=== PATIENT | female | born 1950 | race Caucasian/White ===

== ENCOUNTER 2018-07-19 02:49 | Inpatient (IN) | payer MEDICARE ==
[~2018-07-19] VITALS: Ht 162.5 cm; Wt 66.2 kg
--- NOTE | ~2018-07-19 | EKG ---
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
[2018-07-19 02:53] VITALS: BP 129/62
[2018-07-19 03:20] LABS: BASO % 0.4 % (0.0-1.0); EOS # 0.1 10*3/uL (0.0-0.4); EOS % 1.3 % (1.0-4.0); HEMOGLOBIN 13.8 g/dl (12.0-16.0); LYMPH # 2.6 10*3/uL (1.3-4.4); LYMPH % 32.6 % (27.0-41.0); MEAN CELL VOLUME 91.5 fl (81.0-99.0); MEAN CORPUSCULAR HGB 32.4 pg (27.0-31.0); MEAN CORPUSCULAR HGB CONC 35.4 g/dl (33.0-37.0); MEAN PLATELET VOLUME 10.3 fl (9.6-12.3); MONO # 0.7 10*3/uL (0.1-1.0); MONO % 8.4 % (3.0-9.0); NEUT # 4.6 10*3/uL (2.3-7.9); PLATELET COUNT AUTOMATED 256 10*3/uL (130-400); RED BLOOD COUNT 4.26 10*6/uL (4.10-5.10); RED CELL DISTRI WIDTH 12.6 % (0-14.5)
[2018-07-19 03:38] LABS: ALBUMIN 3.7 gm/dl (3.1-4.5); ALKALINE PHOSPHATASE 65 U/L (45-117); BUN 17 mg/dl (7-24); CHLORIDE 108 mmol/L (98-107); CREATININE 1.13 mg/dL (0.55-1.02); POTASSIUM 3.3 mmol/L (3.5-5.1); SGOT/AST 20 IU/L (3-35); SGPT/ALT 26 U/L (12-78); SODIUM 144 mmol/L (136-145); TROPONIN I < 0.015 ng/ml (<0.045)
[2018-07-19 04:30] VITALS: BP 129/65
--- NOTE | 2018-07-19 04:30 | NUR ---
Time: 429 A 67 year old FEMALE admitted to under services of DAVID WANG DO. Pt. arrived via bed from ER. Chief complaint: SYNCOPAL EPISODE. ASSESSMENT OBTAINED FROM RADIOLOGY SCHEDULER. PT IS A+O. FAMILY IS AT THE BEDSIDE. ORIENTED TO ROOM. HEALTHY LIFESTYLES GUIDELINE REVIEWED. BELONGINGS ACCOUNTED FOR. THE PATIENT HAS NO COMPLAINTS AT THIS TIME. BENOIT BUTTS
[2018-07-19] MEDS ORDERED: TENORMIN25 M1 PO (04:52)
[2018-07-19] MEDS ORDERED: PLAVIX75 M1 PO (04:53)
[2018-07-19] MEDS ORDERED: ASPIRIN ADULT L81 M1 PO (04:53)
[2018-07-19] MEDS ORDERED: OMEPRAZOLE40 MG PO (04:53)
[2018-07-19] MEDS ORDERED: PREMARIN0.3 M1 PO (04:54)
--- NOTE | 2018-07-19 05:50 | NUR ---
DR. DURBIN NOTIFIED PT MED-REC IS UNABLE TO BE COMPLETELY UPDATED BECAUSE SHE STATES SHE FORGETS THE DOSAGE OF TWO OF HER MEDICATIONS. WILL PASS ON TO AM SHIFT TO CALL PHARMACY TO VERIFY DOSAGE, OTHERWISE IT IS COMPLETE.
[2018-07-19 06:38] LABS: BUN 17 mg/dl (7-24); CHLORIDE 110 mmol/L (98-107); CHOLESTEROL 234 mg/dL (<200); POTASSIUM 3.3 mmol/L (3.5-5.1); SODIUM 144 mmol/L (136-145)
[2018-07-19 06:49] LABS: CREATININE 1.01 mg/dL (0.55-1.02); FREE T4 1.09 ng/dl (0.76-1.46); HDL CHOLESTEROL 45 mg/dl (40-60); LDL CHOLESTEROL 115 mg/dL (9-159); TRIGLYCERIDES 370 mg/dl (<150); VLDL CHOLESTEROL 74 mg/dL (6-40)
[2018-07-19] MEDS ORDERED: COZAAR50 M1 PO (07:28)
[2018-07-19] MEDS ORDERED: SINGULAIR10 M1 PO (07:28)
[2018-07-19] MEDS ORDERED: HYDROCHLOROTH12.5 M3 PO (07:29)
[2018-07-19 07:59] LABS: VITAMIN D, 25-HYDROXY 41.2 ng/mL (30-100)
[2018-07-19 08:00] VITALS: BP 130/80
--- NOTE | 2018-07-19 09:00 | NUR ---
Senior [employer] Developer in to talk to patient. Patient states lives at home with sister. There are no steps in the home. 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 JARRED IBRAHIM
--- NOTE | 2018-07-19 10:34 | NUR ---
Medicated with zofran per prn order for nausea. Pt states she became nauseated after eating breakfast. geological technician in room to do echo.
--- NOTE | 2018-07-19 11:15 | NUR ---
States that medication for nausea was effective.
[2018-07-19 12:00] VITALS: BP 123/51
--- NOTE | 2018-07-19 13:11 | NUR ---
Tylenol given per prn order for headache.
--- NOTE | 2018-07-19 14:30 | NUR ---
States that tylenol effective.
[2018-07-19] MEDS ORDERED: LOSARTAN-HCTZ1 EACH PO (15:49)
[2018-07-19 16:00] VITALS: BP 111/52
--- NOTE | 2018-07-19 16:45 | NUR ---
Dr. Duarte here and reading echo.
--- NOTE | 2018-07-19 17:05 | NUR ---
Discharge instructions reviewed with patient/family. Patient receptive and verbalizes understanding. Follow-up care arranged. Written instructions given to patient/family. Pt declined wheelchair left in care of family with belongings. IV removed. OLI ADAME
== END 2018-07-19 17:05 | disposition home or self-care (01) | DRG 640 ==
LOC: ED 02:49 → EDHOLD 04:00 → 4E 04:00
PROVIDERS: Internal Medicine; Student in an Organized Health Care Education/Training Program; ADMIT Emergency Medicine
DX: E86.0 Dehydration (principal); N17.0 Acute kidney failure with tubular necrosis; E44.0 Moderate protein-calorie malnutrition; I25.10 Atherosclerotic heart disease of native coronary artery without angina pectoris; I25.118 Atherosclerotic heart disease of native coronary artery with other forms of angina pectoris; E87.6 Hypokalemia; E87.8 Other disorders of electrolyte and fluid balance, not elsewhere classified; R73.9 Hyperglycemia, unspecified; E83.51 Hypocalcemia; E78.00 Pure hypercholesterolemia, unspecified; Z86.74 Personal history of sudden cardiac arrest; Z95.1 Presence of aortocoronary bypass graft; Z88.0 Allergy status to penicillin; Z88.5 Allergy status to narcotic agent; Z88.8 Allergy status to other drugs, medicaments and biological substances; Z79.82 Long term (current) use of aspirin; Z79.899 Other long term (current) drug therapy; Z79.02 Long term (current) use of antithrombotics/antiplatelets; Z68.25 Body mass index [BMI] 25.0-25.9, adult